=== PATIENT | female | born 1985 | race Caucasian/White ===

== ENCOUNTER 2017-02-02 14:28 | Emergency (ER) | payer BC ==
[2017-02-02 15:18] LABS: HEMOGLOBIN 13.2 gm/dl (12.3-15.3); RED BLOOD COUNT 4.31 M/UL (4.00-5.10); WHITE BLOOD COUNT 8.5 K/UL (4.5-11.0)
[2017-02-02 15:38] LABS: BUN/CREATININE RATIO 18 (0-10)
== END 2017-02-02 19:00 | disposition home or self-care (01) ==
LOC: ER1 14:28
PROVIDERS: Emergency Medicine
DX: R10.31 Right lower quadrant pain (principal)
CPT/HCPCS: 80053; 81001; 83690; 84703; 85025; 96361; 96374; 96375; 99284; J2270; J2405

== ENCOUNTER → 2021-07-24 | Outpatient (CLI) | payer BC | LOC: KOH-I 09:45 | DX: S92.251A Displaced fracture of navicular [scaphoid] of right foot, initial encounter for closed fracture (principal) | CPT/HCPCS: 73630 ==

== ENCOUNTER → 2021-08-10 | Outpatient (CLI) | payer BC | LOC: KOH-I 09:20 | DX: S92.252A Displaced fracture of navicular [scaphoid] of left foot, initial encounter for closed fracture (principal) | CPT/HCPCS: 73610; 73630 ==

== ENCOUNTER → 2021-09-05 | Outpatient (CLI) | payer BC | LOC: EMI 13:43 | DX: M79.671 Pain in right foot (principal); M79.89 Other specified soft tissue disorders; R60.0 Localized edema | CPT/HCPCS: 73718 ==

== ENCOUNTER → 2021-09-28 | Outpatient (CLI) | payer BC | LOC: KOH-I 15:48 | DX: M79.2 Neuralgia and neuritis, unspecified (principal); S99.921D Unspecified injury of right foot, subsequent encounter | CPT/HCPCS: 73700 ==

== ENCOUNTER 2022-01-23 16:06 | Emergency (ER) | payer BC ==
[2022-01-23 16:46] LABS: HEMOGLOBIN 14.1 gm/dl (12.3-15.3); RED BLOOD COUNT 4.62 M/UL (4.00-5.10); WHITE BLOOD COUNT 8.5 K/UL (4.5-11.0)
[2022-01-23 17:11] LABS: BUN/CREATININE RATIO 19 (0-10)
== END 2022-01-23 17:40 | disposition left against medical advice (07) ==
LOC: ER1 16:06
PROVIDERS: Nurse Practitioner
DX: R51.9 Headache, unspecified (principal)
CPT/HCPCS: 70450; 80053; 81001; 85025; 93005; 96374; 96375; 99283; J0780; J1200